=== PATIENT | female | born 1960 | race Caucasian/White ===

== ENCOUNTER → 2023-11-06 | Outpatient (CLI) | payer MEDICARE ==
[2023-11-06 14:19] LABS: Basophils # (A) 0.03 X 10*3/uL (0.00-0.10); Basophils % (A) 0.6 %; Eosinophils # (A) 0.13 X 10*3/uL (0.04-0.35); Eosinophils % (A) 2.5 %; HGB 14.8 g/dL (12.0-15.0); Lymphocytes # (A) 1.75 X 10*3/uL (0.90-5.00); MCHC 33.6 g/dL (32.0-37.0); MCV 89.2 FL (80.0-97.0); Mean Platelet Volume 9.5 FL (9.5-12.2); Monocytes # (A) 0.41 X 10*3/uL (0.20-1.00); NRBC Per 100 WBC 0 X 10*3/uL (0.00-0.01); Neutrophils # (A) 2.81 X 10*3/uL (1.80-7.70); Neutrophils % (A) 54.7 %; Platelet Count 212 X 10*3/uL (140-440); RBC 4.93 X 10*6/uL (4.10-5.20); RDW 12.5 % (11.5-14.5); WBC 5.14 X 10*3/uL (4.50-10.00)
[2023-11-06 14:43] LABS: BUN/Creat Ratio 33.43 Ratio (12.00-20.00); Blood Urea Nitrogen 23.4 mg/dL (9.0-27.0); Calcium 9.4 mg/dL (8.7-10.3); Carbon Dioxide 23.6 mmol/L (21.6-31.8); Chloride 105 mmol/L (96-109); Glucose 112 mg/dL (70-110); Potassium 4.3 mmol/L (3.5-5.5); Sodium 141 mmol/L (135-145)
[2023-11-06 16:38] LABS: Prothrombin Time 10.8 sec (9.9-11.9)
== END | disposition home or self-care (01) ==
LOC: LABPAT 09:23
PROVIDERS: ATTEND Orthopaedic Surgery
DX: Z01.818 Encounter for other preprocedural examination (principal); I44.4 Left anterior fascicular block; M16.11 Unilateral primary osteoarthritis, right hip; Z22.322 Carrier or suspected carrier of Methicillin resistant Staphylococcus aureus; R94.31 Abnormal electrocardiogram [ECG] [EKG]
CPT/HCPCS: 80048; 85025; 85610; 86850; 86900; 86901; 87070; 93005

== ENCOUNTER 2023-11-13 05:48 | Day surgery (SDC) | payer MEDICARE ==
[2023-11-12 09:54] VITALS: BMI 33.8
--- NOTE | 2023-11-12 22:49 | HP ---
HISTORY AND PHYSICAL DATE OF SCHEDULED SURGERY: 11/13/2023. HISTORY OF PRESENT ILLNESS: Aurea Sunshine is a -[id number] patient seen with symptomatic right hip osteoarthritis. After having treatment options discussed, she elected to proceed with direct anterior right total hip arthroplasty. Consent was obtained. PAST MEDICAL HISTORY: Asthma. PAST SURGICAL HISTORY: Knee arthroscopy, total knee arthroplasty, foot surgery. DAILY MEDICATIONS: None reported. SOCIAL HISTORY: She denies tobacco use. PHYSICAL EVALUATION OF RIGHT HIP: She has limited range of motion with severe pain. Positive hip impingement sign. Straight-leg raise negative. Distal neurovascular exam is intact. IMAGING STUDIES: Radiographs of the right hip revealed severe osteoarthritic changes. IMPRESSION: Right hip osteoarthritis. PLAN: Direct anterior right total hip arthroplasty. MMODL / IJN: [id number] /
[~2023-11-13 05:48] MED LIST: TRANEXAMIC 1,000 MG/100ML-NACL 1,000 MG in SALINE 1 100ML.BAG IVPB PRN
[2023-11-13] MEDS ORDERED: LIDOCAINE 1% (10MG/ML) FOR IV START INTRADERMA PRN (06:09)
[2023-11-13] MEDS: ONDANSETRON 4 MG/2 ML VIAL IVP ONE (06:55)
[2023-11-13] MEDS: ACETAMINOPHEN TAB 500 MG TAB PO PRN (06:56)
[2023-11-13] MEDS: MELOXICAM 7.5 MG TAB PO PRN (06:56)
[2023-11-13] MEDS: DEXAMETHASONE SOD PHOSPHATE 4 MG/ML 1 ML VIAL IV ONE (06:56)
[2023-11-13] MEDS: LACTATED RINGERS 1,000 ML IV SCH (06:57)
[2023-11-13] MEDS ORDERED: MIDAZOLAM 2 MG/2 ML VIAL IV PRN (07:00)
[2023-11-13] MEDS ORDERED: fentaNYL (PF) 50 MCG/ML 2 ML AMP IVP PRN (07:00)
[2023-11-13 07:04] LABS: Glucose,Whole Blood 114 mg/dL (70-110)
[2023-11-13] MEDS: MIDAZOLAM 2 MG/2 ML VIAL IVP ONE (07:10)
[2023-11-13] MEDS: IV FLUID CONTINUATION 1,000 ML IV ONE ×2 (07:22→11:06)
[2023-11-13] MEDS ORDERED: LIDOCAINE 4% LTA KIT (4 ML) TOPICAL ONE (07:24)
[2023-11-13] MEDS ORDERED: DEXAMETHASONE SOD PHOSPHATE 4 MG/ML 1 ML VIAL ONE (07:24)
[2023-11-13] MEDS ORDERED: MIDAZOLAM 2 MG/2 ML VIAL ONE (07:24)
[2023-11-13] MEDS ORDERED: LIDOCAINE 1% INJ 10MG/ML (20 ML MDV) ONE (07:24)
[2023-11-13] MEDS ORDERED: ROPIVACAINE 5 MG/ML 30 ML VIAL ONE (07:24)
[2023-11-13] MEDS ORDERED: fentaNYL (PF) 50 MCG/ML 2 ML AMP ONE (07:24)
[2023-11-13] MEDS ORDERED: SUCCINYLCHOLINE CHLORIDE 200 MG/10 ML VIAL IV ONE (07:24)
[2023-11-13] MEDS ORDERED: ePHEDrine 50 MG/ML 1 ML VIAL ONE (07:24)
[2023-11-13] MEDS ORDERED: TRANEXAMIC 1,000 MG/100ML-NACL PREMIX BAG ONE (07:24)
[2023-11-13] MEDS ORDERED: PROPOFOL 10 MG/ML 20 ML VIAL IV ONE (07:24)
[2023-11-13] MEDS: ceFAZolin 1,000 MG in SODIUM CHLORIDE 0.9% 1,000 ML IRRIGATION ONE (07:30)
[2023-11-13] MEDS ORDERED: HYDROmorphone 1 MG/ML 1 ML SYRINGE IVP PRN (09:06)
[2023-11-13] MEDS ORDERED: HYDROmorphone 0.5 MG/0.5 ML SYRINGE IVP PRN ×2 (09:06)
[2023-11-13] MEDS ORDERED: ONDANSETRON 4 MG/2 ML VIAL IVP PRN (09:06)
[2023-11-13] MEDS ORDERED: NALOXONE 0.4 MG/ML 1 ML VIAL IV PRN (09:06)
[2023-11-13] MEDS ORDERED: HYDROcodone/APAP 7.5-325MG 1 EACH TAB PO PRN (09:06)
--- NOTE | 2023-11-13 09:06 | P.OP ---
Date of Procedure: 11/13/23 Preoperative Diagnosis: Right hip osteoarthritis Postoperative Diagnosis: Right hip osteoarthritis Procedure(s) Performed: Direct anterior right total hip arthroplasty Implants: 1. DePuy [place] 135 degree standard collared KA size 13 press-fit femoral stem 2. DePuy [place] 60 mm press-fit acetabular shell 3. DePuy [place] neutral polyethylene acetabular liner 36 mm ID 60 mm OD 4. Biolox delta ceramic femoral head +1.5 36 mm Anesthesia: GETA, local (Erector spinae block) Surgeon: Ricardo Maharaj Typing Pool Supervisor #1: Alan Abdullahi Estimated Blood Loss (ml): 75 Pathology: none sent Condition: stable Disposition: PACU Indications for Procedure: 63-year-old patient seen with symptomatic right hip osteoarthritis. After having treatment options discussed, she elected to proceed with right total hip arthroplasty. Operative Findings: See description of procedure Description of Procedure: The patient was taken to the operative suite. Patient underwent a general anes thetic by the department of anesthesia. Patient was then transferred to the [place] table. Patient was given preoperative IV antibiotics and TXA. Both lower extremities were placed in standard leg spars. The hip was then prepped and draped in the normal sterile orthopedic fashion. A standard anterior incision was made beginning 3 cm lateral and 1 cm distal to the ASIS extending 10 cm. Dissection was then carried down through the subcutaneous soft tissues down to the fascia overlying the tensor fascia adilia. An incision was now made through the fascia. Careful dissection was taken down exposing the tensor fascia adilia muscle. A Cobra retractor was now placed along the medial femoral neck and a second one along the lateral femoral neck. The venous circumflex vessels were now identified, cauterized and clipped. We identified the anterior hip capsule. An incision was made through the hip capsule along the lateral border. I performed a partial anterior capsulectomy. Retractors were now placed around the femoral neck itself. A femoral neck cut was now made with a sagittal saw. It was completed with an osteotome at the lateral neck area. The femoral head was now removed without difficulty. The extremity was now rotated to 60 of external rotation. It was locked in position. Residual labrum was now debrided out. Serial reaming was performed of the acetabulum while Nito NINO assisted holding an anterior retractor for exposure. Once we reached the appropriate size and a trial was position and fit nicely. The appropriate size was now chosen opened and made available. It was introduced into the acetabulum without difficulty. The C-arm/fluoroscopy was now brought into the operative field. We made sure we had a true AP pelvic view. We now under direct C-arm /fluoroscopy introduced into the acetabular component with appropriate version and inclination. I held the cup in appropriate position well Nito NINO used a mallet to seat the acetabular component. I noted the component now to be well seated and stable. Acetabular cup introduce her was removed. The C-arm was pulled back. An appropriate liner was introduced and clicked into position. It was felt to be stable. At this point retractors were removed. The extremity was now placed into 140 external rotation with no traction. The leg was now dropped to the ground and adducted. Appropriate retractors were now positioned along the proximal femur. We also placed our femoral look into position. Additional capsular releasing was performed to gain access to the proximal femur. We now used a box osteotome. A canal finder was now utilized. Serial broaching was now performed with the assistance of Nito NINO tapping the broaches down with a mallet while held the broach in appropriate rotation and position. This was done until we reached the appropriate size with good overall rotational stability. Appropriate calcar planing was performed. A trial head/neck was placed into position. The hip was now reduced. The C- arm/fluoroscopy was brought back into the operative field. I obtained an AP pelvis was demonstrated adequate leg length alignment. The trial components appeared adequately sized and position. The C-arm/fluoroscopy was pulled back. Retractors were repositioned and the hip was dislocated. The leg was again taken down to the ground and adducted. Appropriate retractors were repositioned as well as the femoral hook. All trial components were removed. The femoral implant was opened along with the femoral head. The femoral implant was introduced on the appropriate handle into our pre-broached area. I held the component position well Nito NINO used a mallet to seat the femoral component. The femoral component was now noted to be well seated and stable. The femoral head was introduced with good positioning and fixation noted. Retractors were now removed. The hip was now reduced. There appeared be good positioning of the hip confirmed on intraoperative fluoroscopy. Spot films were obtained to document this. A second gram of TXA was given. Bipolar cautery had been utilized intermittently through the procedure for hemostasis. The wound was irrigated copiously with pulse lavage mechanical irrigation. The fascia was repaired with Vicryl suture. The subcutaneous soft tissues were repaired in layers with Vicryl suture. The skin was approximated with pernio/Dermabond. Sterile dressings were applied. Patient was then awakened, transferred to a bed and taken to recovery in stable condition. Nito NINO assisted with the complex procedure.
--- NOTE | 2023-11-13 09:10 | FL ---
EXAMINATION TYPE: FL guidance operating room, XR Hip Limited RT Intraoperative/procedural fluoroscopi c services were provided. Total fluoroscopy time is 23.6 seconds with a total of 2 submitted images t o PACS. Please see the operative/procedural note for further details. DAP: 1.4175 Gycm2
[2023-11-13 09:30] VITALS: TEMP 97.6
[2023-11-13] MEDS: HYDROmorphone 0.5 MG/0.5 ML SYRINGE IVP PRN (09:58)
[2023-11-13 10:41] VITALS: RESP 16
[2023-11-13] MEDS: LACTATED RINGERS 1,000 ML IV ONE (11:05)
[2023-11-13] MEDS: HYDROcodone/APAP 5-325MG 1 EACH TAB PO PRN (11:56)
[2023-11-13 12:32] VITALS: BP 125/84; PULSE 66
--- NOTE | 2023-11-13 21:00 | P.ANPRN ---
Procedure Note - Anesthesia - Nerve Block Performed Right [place] Single Time Out Performed: Yes Date of Procedure: 11/13/23 Procedure Start Time: 07:09 Procedure Stop Time: 07:15 Location of Patient: PreOp Indication: Acute Post-Operative Pain, Requested by Surgeon Sedation Type: Sedate with meaningful contact maintained Preparation: Sterile Prep Position: Supine Needle Types: Pajunk Needle Gauge: 21 Ultrasound used to visualize needle placement: Yes Ultrasound used to observe medication spread: Yes Blood Aspirated: No Pain Paresthesia on Injection Noted: No Resistance on Injection: Normal Image Stored and Saved: Yes Events: Uneventful and Well Tolerated (Ropivacaine 0.5% 20 cc plus dexamethasone 4 mg)
== END 2023-11-13 14:06 | disposition home health service (06) ==
LOC: OR 05:48
PROVIDERS: ATTEND Orthopaedic Surgery
DX: M16.11 Unilateral primary osteoarthritis, right hip (principal); J45.909 Unspecified asthma, uncomplicated; E66.9 Obesity, unspecified; G89.18 Other acute postprocedural pain; Z79.1 Long term (current) use of non-steroidal anti-inflammatories (NSAID); Z98.890 Other specified postprocedural states; Z68.34 Body mass index [BMI] 34.0-34.9, adult
CPT/HCPCS: 27130; 97530; 97161; 64447; 73501; C1776; J2250; J0330; J1100; J0690 ×2; J2405; J2001; J3010; J2795; J2704; J1170

== ENCOUNTER → 2024-02-02 | Outpatient (CLI) | payer MEDICARE ==
--- NOTE | 2024-02-15 11:55 | MM ---
Reason for Exam: Screening (asymptomatic). Patient History: Menarche at age 9. First Full-Term at age 20. Postmenopausal. Maternal grandmother had ovarian cancer. Risk Values: Brandi 5 year model risk: 1.6%. NCI Lifetime model risk: 6.2%. Prior Study Comparison: No prior studies available for comparison. Tissue Density: The breasts are heterogeneously dense, which may obscure small masses. Findings: Analyzed By CAD. The pattern is symmetrical. No suspicious groups of microcalcifications, spiculated or lobular masses, architectural distortion or other secondary signs of malignancy are mammographically apparent. Overall Assessment: Benign, BI-RAD 2 Management: Screening Mammogram of both breasts in 1 year. A negative mammogram report should not preclude additional follow up of suspicious palpable abnormalities. Patient should continue monthly self breast exam. A clinical breast exam by your physician is recommended on an annual basis and results should be correlated with mammographic findings. Note on Brandi scores and lifetime risk: 1. A Brandi score greater than 3% is considered moderate risk. If this is the case, consider specialist referral to assess eligibility for a risk reducing agent. 2. If overall lifetime risk for the development of breast cancer is 20% or higher, the patient may qualify for future screening with alternating mammogram and breast MRI. [facility], , 02/15/2024 11:52 AM. Electronically signed and approved by: Eloy Joyce D.O. Radiologis
== END | disposition home or self-care (01) ==
LOC: RADMAMWWP 15:42
PROVIDERS: ATTEND Family Medicine
DX: Z12.31 Encounter for screening mammogram for malignant neoplasm of breast
CPT/HCPCS: 77067